=== PATIENT | female | born 1980 | race Caucasian/White ===

== ENCOUNTER → 2017-06-14 | Outpatient (CLI) | payer BC, OTHER ==
[~2017-06-14] MED LIST: ASPI-320 PO; GADOXETATE DISODIUM (NON-WT BASED PROCEDURE) IV PRN; LPR25 PO; MULT-260 PO; OMEP40CA PO; POLY335025 PO; RANI300T PO
--- NOTE | 2017-06-15 13:15 | DIAGNOSTIC IMAGING REPORT ---
LIVER COMBO HISTORY: 37 years-old Female ABNORMAL CT SCAN follow-up study in a patient with reported lesion of the liver seen on comparison CT. History of fatty infiltration of the liver. Prior cholecystectomy and hysterectomy. COMPARISON: CT abdomen and pelvis 06/02/2017 TECHNIQUE: Multiplanar multisequence MRI of the liver was obtained both with and without the use of 10 mL Eovist utilizing institutional liver protocol. FINDINGS: The imaged lungs appear clear. Splenule is noted adjacent to the splenic hilum, 1.6 cm. Pancreas and adrenal glands are within normal limits. Prior cholecystectomy. No intrahepatic biliary ductal dilation identified. The liver is mildly enlarged measuring up to 17 cm at the midclavicular line. Significant drop of signal on the out of phase images compatible with fatty infiltration of the liver. Common bile duct appears normal, measuring up to 4 mm transversely. There are two foci of isointense T1 and T2 signal involving segment VII of the liver measuring 6 and 4 mm respectively nicely seen on image 20 and 37 of series 19. The lesions demonstrate avid enhancement on the arterial phase with prolonged enhancement on the hepatobiliary delayed phase with slightly increased signal on the diffusion-weighted images. Focal area of decreased attenuation involving the inferior right hepatic lobe seen on comparison CT correlates with focal area of more profound fatty infiltration with increased signal dropout as seen on image 171 series 7 measuring 1.2 cm. Aorta is normal in course and caliber. Right kidney and ureter are within normal limits. Note is made of a duplicated renal collecting system on the left nicely seen on image 110 series 10. No bowel dilation identified. Mild diastases recti with probable tiny fat filled umbilical hernia. Soft tissues and bones appear unremarkable. IMPRESSION: 1. There are two enhancing subcentimeter lesions within segment VII of the right hepatic lobe measuring up to 6 mm correlating with the findings seen on comparison CT study dated 06/02/2017. These lesions would favor areas of focal nodular hyperplasia (FNH) with flash filling hepatic hemangiomas also within the differential. 2. Hepatomegaly with hepatic steatosis. 3. Prior cholecystectomy. 4. 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 The above report was generated using voice recognition software. It may contain grammatical, syntax or spelling errors. Electronically signed by: Noe Wilder M.D. 06/15/2017 1:14 PM Dictated Date/Time: 06/14/2017 10:41 PM
== END | disposition home or self-care (01) ==
LOC: C.MRI 18:21
PROVIDERS: ATTEND Internal Medicine Gastroenterology
DX: R16.0 Hepatomegaly, not elsewhere classified (principal); K76.0 Fatty (change of) liver, not elsewhere classified; Z90.49 Acquired absence of other specified parts of digestive tract